=== PATIENT | female | born 1975 ===

== ENCOUNTER 2023-12-16 11:17 | Day surgery (SDC) | payer BC ==
[~2023-12-16] VITALS: Ht 162.6 cm; Wt 114.0 kg
[~2023-12-16 11:17] MED LIST: LR 1,000 ML IV SCH; Ondansetron 4 MG/2 ML VIAL IV PRN
[2023-12-16] MEDS ORDERED: DAZIDOX10 MG PO (11:35)
[2023-12-16] MEDS ORDERED: LASIX 20MG TABL20 MG PO (11:35)
[2023-12-16] MEDS ORDERED: ALBUTEROL0.83 MG/ML IH (11:35)
[2023-12-16] MEDS ORDERED: SEROQUEL50 MG PO (11:36)
[2023-12-16] MEDS ORDERED: PHENERGAN1.25 MG/ML PO (11:36)
[2023-12-16] MEDS ORDERED: MOBIC15 MG PO (11:36)
[2023-12-16] MEDS ORDERED: PROAIR HFA0.09 MG/AC IH (11:36)
[2023-12-16] MEDS ORDERED: TESSALON P100 MG/CAP PO (11:37)
[2023-12-16] MEDS ORDERED: XANAX 1MG1 MG PO (11:37)
[2023-12-16 11:49] VITALS: BP 160/99; PULSE 79; TEMP 96.9
[2023-12-16] MEDS ORDERED: Lidocaine PF 2% (20 MG/ML) 5 ML VIAL ONE (11:59)
--- NOTE | 2023-12-16 12:03 | NUR ---
Patient admitted to [facility] bay 5. Admission assessments completed. Anesthesia and Dr. Doty in to see patient. Consents signed. 20G IV inserted into RFA, LR infusing without difficulty. Medications, allergies, and pharmacy confirmed. Daughter in waiting room. Pt resting in recliner chair, warm blanket provided.
[2023-12-16 12:40] VITALS: BP 118/76; PULSE 72; TEMP 96.9
[2023-12-16 12:55] VITALS: BP 125/88; PULSE 71
--- NOTE | 2023-12-16 13:00 | NUR ---
1240- Pt returns from procedure via cart. Ambulates to recliner chair with 2 staff members. Bedside handoff received from HARLEY Colmenares. VSS. Pt given muffin, juice, and jello for snack. Denies complaints. 1250- Dr. Doty in room to review colonoscopy with patient. Questions answered 1259- Daughter called, she will return to the hospital shortly. Discharge instructions and education reviewed with patient, all questions answered.
[2023-12-16 13:10] VITALS: BP 131/63; PULSE 72
--- NOTE | 2023-12-16 13:10 | NUR ---
Pt reports feeling ready to get dressed. IV site removed. Pt getting dressed at this time, denies any complaints.
--- NOTE | 2023-12-16 13:21 | NUR ---
Pt down to daughters car via w/c, accompanied by this nruse at 1320. Denied any c/o at that time.
== END 2023-12-16 13:20 | disposition home or self-care (01) ==
LOC: SDCO 11:17
DX: Z12.11 Encounter for screening for malignant neoplasm of colon (principal); K62.89 Other specified diseases of anus and rectum; K57.30 Diverticulosis of large intestine without perforation or abscess without bleeding; Z86.16 Personal history of COVID-19
CPT/HCPCS: J2704; J7120